=== PATIENT | male | born 1950 | race Caucasian/White ===

== ENCOUNTER → 2017-02-24 | Outpatient (CLI) | payer MEDICARE ==
[~2017-02-24] MED LIST: AMBIEN DPS10 MG PO; CHILDREN'S ASPI81 MG PO; CODEINE-GUAIFE473 ML PO; COREG DPS3.125 MG PO; DAILY MULTIPLE1 EAC1 PO; DUONEB DPS3 ML IH; ELAVIL-DPS100 MG PO; KENALOG OINT. 015 GM TP; LASIX DPS40 MG PO; VALTREX DPS1 GM PO; ZESTRIL DPS2.5 MG PO
== END | disposition home or self-care (01) ==
LOC: PTH.S 09:46
DX: D49.2 Neoplasm of unspecified behavior of bone, soft tissue, and skin (principal); R93.8 Abnormal findings on diagnostic imaging of other specified body structures

== ENCOUNTER → 2017-02-25 | Outpatient (CLI) | payer MEDICARE | END | disposition home or self-care (01) | LOC: RAD.S 12:38 | DX: R93.8 Abnormal findings on diagnostic imaging of other specified body structures (principal); D49.2 Neoplasm of unspecified behavior of bone, soft tissue, and skin; M89.9 Disorder of bone, unspecified ==